=== PATIENT | male | born 1950 | race Caucasian/White ===

== ENCOUNTER 2016-10-17 11:42 | Inpatient (IN) | payer OTHER ==
[~2016-10-17] VITALS: Ht 175.3 cm; Wt 86.9 kg
[2016-10-17 12:32] LABS: EOSINOPHIL (%) 0 % (0-5); HEMATOCRIT 51.5 % (38.0-50.0); IMMATURE GRANULOCYTE (%) 0.4 % (0.0-0.7); IMMATURE GRANULOCYTE COUNT 0.8 K/uL; LYMPHOCYTE COUNT 1.5 K/uL (1.0-2.8); MCH 30.3 PG (29.0-34.0); MCHC 34.2 G/DL (30.0-36.0); MCV 88.6 FL (86-99); MEAN PLAT.VOLUME 9.6 uM^3 (9.0-12.4); MONOCYTE (%) 5.5 % (3-12); MONOCYTE COUNT 1.2 K/uL (0-0.8); NEUTROPHIL (%) 86.5 % (45-76); NEUTROPHIL COUNT 18.1 K/uL (1.8-6.4); PLATELET COUNT 283 K/uL (156-360); RBC DIS.WIDTH-CV 13.7 % (11.8-14.6); RBC DIS.WIDTH-SD 43.9 % (39-53); RED BLOOD COUNT 5.81 M/uL (4.00-5.50)
[2016-10-17 12:33] LABS: WHITE BLOOD COUNT 20.9 K/uL (4.1-10.2)
[2016-10-17 12:40] LABS: CHLORIDE 110 mEq/L (99-109); POTASSIUM 4.1 mEq/L (3.7-5.4); SODIUM 141 mEq/L (136-147)
[2016-10-17 12:41] LABS: GLUCOSE 151 mg/dL (70-99); INTER. NORMALIZED RATIO 1.1; PTT 27.3 (25-32)
[2016-10-17 12:43] LABS: ANION GAP 11 MEQ/L (2-14)
[2016-10-17 12:45] LABS: GFR ESTIMATE (CALCULATED) > 59 mL/min/
[2016-10-17 12:46] LABS: UREA NITROGEN (BUN) 19 mg/dL (9-23)
[2016-10-17 12:52] LABS: TROP-I INTERPRETATION INDETERMINATE; TROPONIN-I 0.59 ng/mL (0.0-0.30)
[2016-10-17] MEDS ORDERED: BACLOFEN20 MG PO (13:45)
[2016-10-17] MEDS ORDERED: PREDNISONE20 MG PO (13:47)
[2016-10-17] MEDS ORDERED: NABUMETONE500 MG PO (13:49)
[2016-10-17] MEDS ORDERED: CITALOPRAM HBR40 MG PO (13:50)
[2016-10-17] MEDS ORDERED: PRAVASTATIN SOD80 MG PO (13:50)
[2016-10-17] MEDS ORDERED: TAMSULOSIN HCL0.4 MG PO (13:52)
[2016-10-17] MEDS ORDERED: COMBIVENT RESPIM4 GM IH (13:52)
[2016-10-17] MEDS ORDERED: KENALOG,ARISTOC80 G1 TP (13:52)
[2016-10-17] MEDS ORDERED: VITAMIN D31000 UNI2 PO (13:53)
[2016-10-17] MEDS ORDERED: OCEAN NASAL 0.645 ML BOTH NARES (13:53)
[2016-10-17] MEDS ORDERED: VICKS VAPORUB O50 GM TP (13:54)
[2016-10-17 16:30] VITALS: BP 129/65
[2016-10-17 17:00] VITALS: BP 124/72
[2016-10-17 17:30] VITALS: BP 147/75
[2016-10-17 18:55] LABS: METH RESISTANT S AUREUS PCR NEGATIVE (NEGATIVE)
[2016-10-17 18:57] LABS: PROBE CHECK PASS; SPECIMEN PROCESSING CONTROL PASS
== END 2016-10-17 18:30 | disposition short-term general hospital (02) | DRG 270 ==
LOC: EME → EDBD 11:42 → EME 14:03 → CATH 14:03 → 4WEST 15:33
PROVIDERS: Emergency Medicine; Radiology Diagnostic Radiology
DX: I21.4 Non-ST elevation (NSTEMI) myocardial infarction (principal); I50.21 Acute systolic (congestive) heart failure; I25.10 Atherosclerotic heart disease of native coronary artery without angina pectoris; Z87.891 Personal history of nicotine dependence
CPT/HCPCS: 71010; 80048; 83880; 84484; 85025; 85347; 85610; 85730; 87641; 93005; 99281; 99285; C1769; C1887; C1894; J1644; J1940; J2250; J3010; J7050; J7644

== ENCOUNTER 2016-10-26 12:13 | Inpatient (IN) | payer OTHER ==
[~2016-10-26] VITALS: Ht 177.8 cm; Wt 82.8 kg
[~2016-10-26 12:13] MED LIST: BACLOFEN20 MG PO; CITALOPRAM HBR40 MG PO; COMBIVENT RESPIM4 GM IH; KENALOG,ARISTOC80 G1 TP; NABUMETONE500 MG PO; OCEAN NASAL 0.645 ML BOTH NARES; PRAVASTATIN SOD80 MG PO; PREDNISONE20 MG PO; TAMSULOSIN HCL0.4 MG PO; VICKS VAPORUB O50 GM TP; VITAMIN D31000 UNI2 PO
[2016-10-28 18:18] VITALS: BP 101/58
[2016-10-29 00:38] VITALS: BP 125/66
[2016-10-29 05:32] VITALS: BP 129/62
[2016-10-29 07:55] LABS: INTER. NORMALIZED RATIO 2.3
[2016-10-29 08:01] LABS: ALKALINE PHOSPHATASE 121 IU/L (3-129); ANION GAP 10 MEQ/L (2-14); CHLORIDE 104 MEQ/L (99-109); GFR ESTIMATE (CALCULATED) > 59 mL/min/; GLUCOSE 95 mg/dL (70-99); POTASSIUM 4.5 MEQ/L (3.7-5.4); SAMPLE HEMOLYSIS CHECK 0; SAMPLE ICTERIC CHECK 0; SAMPLE LIPEMIA CHECK 0; SODIUM 137 MEQ/L (136-147); TOTAL BILIRUBIN 0.6 MG/DL (0.0-1.0); UREA NITROGEN (BUN) 21 mg/dL (9-23)
[2016-10-29 08:09] LABS: PROTHROMBIN TIME 24.4 (9.2-11.2)
[2016-10-29 08:11] LABS: HEMATOCRIT 33.9 % (38.0-50.0); MCH 30.5 PG (29.0-34.0); MCHC 33.3 G/DL (30.0-36.0); MCV 91.4 FL (86-99); MEAN PLAT.VOLUME 9.7 uM^3 (9.0-12.4); RBC DIS.WIDTH-CV 14.4 % (11.8-14.6); RBC DIS.WIDTH-SD 47.2 % (39-53)
[2016-10-29 08:12] LABS: PLATELET COUNT 516 K/uL (156-360); RED BLOOD COUNT 3.71 M/uL (4.00-5.50); WHITE BLOOD COUNT 13.2 K/uL (4.1-10.2)
[2016-10-29 15:06] VITALS: BP 104/62
[2016-10-30 03:44] VITALS: BP 119/64
[2016-10-30 06:45] LABS: INTER. NORMALIZED RATIO 2.4; PROTHROMBIN TIME 24.6 (9.2-11.2)
[2016-10-30 15:06] VITALS: BP 116/77
[2016-10-31 05:02] VITALS: BP 105/62
[2016-10-31 07:11] LABS: INTER. NORMALIZED RATIO 3.2; PROTHROMBIN TIME 33.5 (9.2-11.2)
[2016-10-31 15:14] VITALS: BP 125/62
[2016-10-31] MEDS ORDERED: AMIODARONE HCL200 MG PO (15:16)
[2016-10-31] MEDS ORDERED: ASPIR 8181 M1 PO (15:17)
[2016-10-31] MEDS ORDERED: DIGITEK125 MC2 PO (15:18)
[2016-10-31] MEDS ORDERED: COLACE100 MG PO (15:19)
[2016-10-31] MEDS ORDERED: LASIX20 MG PO (15:20)
[2016-10-31] MEDS ORDERED: MAG-OXIDE400 MG PO (15:21)
[2016-10-31] MEDS ORDERED: METOPROLOL TART50 MG PO (15:22)
[2016-11-01 05:42] VITALS: BP 118/65
[2016-11-01 06:35] LABS: INTER. NORMALIZED RATIO 3.2; PROTHROMBIN TIME 33.3 (9.2-11.2)
[2016-11-01 08:30] VITALS: BP 108/57
[2016-11-01 15:19] VITALS: BP 116/56
[2016-11-02 05:32] VITALS: BP 134/64
[2016-11-02 06:33] LABS: INTER. NORMALIZED RATIO 2.6; PROTHROMBIN TIME 27.6 (9.2-11.2)
[2016-11-02 11:23] VITALS: BP 94/56
[2016-11-02 15:28] VITALS: BP 107/63
[2016-11-03 04:48] VITALS: BP 108/65
[2016-11-03 06:10] LABS: INTER. NORMALIZED RATIO 2.6; PROTHROMBIN TIME 27.1 (9.2-11.2)
[2016-11-03 15:56] VITALS: BP 102/59
[2016-11-04 05:24] VITALS: BP 155/71
[2016-11-04 06:04] LABS: INTER. NORMALIZED RATIO 2.4; PROTHROMBIN TIME 25.5 (9.2-11.2)
[2016-11-04 12:08] LABS: HEMATOCRIT 36.1 % (38.0-50.0); MCH 29.5 PG (29.0-34.0); MCHC 31.3 G/DL (30.0-36.0); MCV 94.3 FL (86-99); MEAN PLAT.VOLUME 9.2 uM^3 (9.0-12.4); PLATELET COUNT 488 K/uL (156-360); RBC DIS.WIDTH-CV 15.1 % (11.8-14.6); RBC DIS.WIDTH-SD 51.1 % (39-53); RED BLOOD COUNT 3.83 M/uL (4.00-5.50); WHITE BLOOD COUNT 9.7 K/uL (4.1-10.2)
[2016-11-04 12:29] LABS: ALKALINE PHOSPHATASE 118 IU/L (3-129); ANION GAP 5 MEQ/L (2-14); CHLORIDE 104 MEQ/L (99-109); GFR ESTIMATE (CALCULATED) > 59 mL/min/; GLUCOSE 97 mg/dL (70-99); POTASSIUM 4.6 MEQ/L (3.7-5.4); SAMPLE HEMOLYSIS CHECK 0; SAMPLE ICTERIC CHECK 0; SAMPLE LIPEMIA CHECK 0; SODIUM 137 MEQ/L (136-147); UREA NITROGEN (BUN) 15 mg/dL (9-23)
[2016-11-04 12:30] LABS: TOTAL BILIRUBIN 0.3 MG/DL (0.0-1.0)
[2016-11-04 15:00] VITALS: BP 102/56
[2016-11-05 05:05] LABS: INTER. NORMALIZED RATIO 2.3; PROTHROMBIN TIME 23.8 (9.2-11.2)
[2016-11-05 05:13] VITALS: BP 120/68
[2016-11-05 15:15] VITALS: BP 98/54
[2016-11-06 05:28] VITALS: BP 132/64
[2016-11-06 06:07] LABS: INTER. NORMALIZED RATIO 2.2; PROTHROMBIN TIME 22.7 (9.2-11.2)
[2016-11-06] MEDS ORDERED: CARVEDILOL12.5 MG PO (14:13)
[2016-11-06] MEDS ORDERED: THERAGRAN1 TABLET PO (14:13)
[2016-11-06] MEDS ORDERED: LISINOPRIL2.5 MG PO (14:13)
[2016-11-06] MEDS ORDERED: TYLENOL REGULA325 MG PO (14:13)
[2016-11-06] MEDS ORDERED: COMBIVENT RESPIM4 GM IH (14:13)
[2016-11-06] MEDS ORDERED: FUROSEMIDE20 MG PO (14:13)
[2016-11-06] MEDS ORDERED: DOCUSATE SODIU100 MG PO (14:13)
[2016-11-06 16:40] VITALS: BP 103/59
[2016-11-07 05:30] VITALS: BP 126/68
[2016-11-07 07:20] LABS: INTER. NORMALIZED RATIO 2.2; PROTHROMBIN TIME 23.4 (9.2-11.2)
[2016-11-07] MEDS ORDERED: COUMADIN1 MG PO ×2 (09:53→10:07)
[2016-11-07] MEDS ORDERED: PRAVASTATIN SOD80 MG PO (09:59)
[2016-11-07] MEDS ORDERED: DIGITEK125 MC2 PO (09:59)
[2016-11-07] MEDS ORDERED: MAG-OXIDE400 MG PO (09:59)
[2016-11-07] MEDS ORDERED: AMIODARONE HCL200 MG PO (09:59)
[2016-11-07] MEDS ORDERED: COUMADIN2 MG PO (12:10)
== END 2016-11-07 15:10 | DRG 949 ==
LOC: 3WEST 12:13
PROVIDERS: Physical Medicine & Rehabilitation Pain Medicine
PROC: F07M0ZZ Range of Motion and Joint Mobility Treatment of Musculoskeletal System - Whole Body (ICD-10-PCS; principal; 2016-10-28)
DX: Z48.89 Encounter for other specified surgical aftercare (principal); I21.4 Non-ST elevation (NSTEMI) myocardial infarction; I50.21 Acute systolic (congestive) heart failure; F33.9 Major depressive disorder, recurrent, unspecified; D62 Acute posthemorrhagic anemia; N17.9 Acute kidney failure, unspecified; J90 Pleural effusion, not elsewhere classified; J98.11 Atelectasis; M62.81 Muscle weakness (generalized); G89.18 Other acute postprocedural pain; G89.12 Acute post-thoracotomy pain; I48.2 Chronic atrial fibrillation; N40.0 Benign prostatic hyperplasia without lower urinary tract symptoms; E78.5 Hyperlipidemia, unspecified; R31.9 Hematuria, unspecified; G47.00 Insomnia, unspecified; K59.00 Constipation, unspecified; M54.12 Radiculopathy, cervical region; I25.5 Ischemic cardiomyopathy; I25.10 Atherosclerotic heart disease of native coronary artery without angina pectoris; Z95.5 Presence of coronary angioplasty implant and graft; Z87.891 Personal history of nicotine dependence; Z82.49 Family history of ischemic heart disease and other diseases of the circulatory system; Z79.01 Long term (current) use of anticoagulants; Z79.82 Long term (current) use of aspirin
CPT/HCPCS: 71010; 80053; 83880; 85027; 85610; 93005; 97530 GP; 99202